=== PATIENT | female | born 1965 | race Caucasian/White ===

== ENCOUNTER 2018-01-03 14:44 | Outpatient (CLI) | payer OTHER | END 2018-01-03 14:47 | disposition home or self-care (01) | LOC: MAMO-SONO 14:44 | DX: N93.8 Other specified abnormal uterine and vaginal bleeding (principal); R10.2 Pelvic and perineal pain; N60.11 Diffuse cystic mastopathy of right breast; N60.12 Diffuse cystic mastopathy of left breast ==

== ENCOUNTER 2018-01-22 13:48 | Outpatient (CLI) | payer OTHER | END 2018-01-22 13:59 | disposition home or self-care (01) | LOC: NUCLEAR 13:48 | DX: M81.0 Age-related osteoporosis without current pathological fracture (principal) ==

== ENCOUNTER 2021-02-28 07:45 | Inpatient (IN) | payer OTHER ==
[2021-03-23] MEDS ORDERED: IRBESARTAN75 MG PO (08:33)
[2021-03-23] MEDS ORDERED: CRESTOR5 MG PO (08:33)
== END 2021-03-31 19:49 | disposition home or self-care (01) | DRG 331 ==
LOC: SURH 03-29 08:00 → O/R 03-29 08:00 → SURH 03-29 08:15
PROVIDERS: ADMIT Colon & Rectal Surgery; ATTEND Colon & Rectal Surgery
PROC: 0DBP4ZZ Excision of Rectum, Percutaneous Endoscopic Approach (ICD-10-PCS; 2021-03-29)
PROC: 4A12X4Z Monitoring of Cardiac Electrical Activity, External Approach (ICD-10-PCS; 2021-03-29)
PROC: 0DTN4ZZ Resection of Sigmoid Colon, Percutaneous Endoscopic Approach (ICD-10-PCS; principal; 2021-03-29 11:00)
DX: K57.20 Diverticulitis of large intestine with perforation and abscess without bleeding (principal); K63.5 Polyp of colon; F17.200 Nicotine dependence, unspecified, uncomplicated; I11.9 Hypertensive heart disease without heart failure; R06.81 Apnea, not elsewhere classified; D75.1 Secondary polycythemia

== ENCOUNTER → 2024-06-18 | Emergency (ER) | payer OTHER ==
[~2024-06-18] VITALS: Ht 170.2 cm; Wt 70.3 kg
[~2024-06-18] MED LIST: CRESTOR5 MG PO; IRBESARTAN75 MG PO
[2024-06-18 02:10] VITALS: BP 122/83; O2SAT 99
== END | disposition left against medical advice (07) ==
LOC: ER 01:54
DX: Z53.21 Procedure and treatment not carried out due to patient leaving prior to being seen by health care provider (principal)

== ENCOUNTER → 2024-08-05 | Emergency (ER) | payer OTHER ==
[~2024-08-05] VITALS: Ht 170.2 cm; Wt 70.3 kg
[~2024-08-05] MED LIST changes: +0.9 % SODIUM CHLORIDE 1,000 ML IV STA; +ALPRAZOLAM0.5 MG PO; +DIPHENOXYLATE HCL/ATROPINE 1 UDTAB TABLET PO STA; +FAMOTIDINE/PF 20 MG/2 ML VIAL ONE; +FAMOtidine 10 MG/ML (4ML VIAL) IV PUSH STA; +HYOSCYAMINE SULFATE 0.125 MG TAB.SUBL ONE; +HYOSCYAMINE SULFATE 0.125 MG TAB.SUBL SL ONE; +KETOROLAC TROMETHAMINE 30 MG VIAL IV STA; +KETOROLAC TROMETHAMINE 30 MG VIAL ONE; +MIRTAZAPINE15 MG PO; +ONDANSETRON HCL 2 MG/ML VIAL IV STA; +ONDANSETRON HCL 2 MG/ML VIAL ONE; +PEPCID AC20 MG PO; +PROBIOTIC1 EAC2 PO; +PROMETHAZINE HCL 50 MG/ML AMPUL IM ONE; +PROMETHAZINE HCL 50 MG/ML AMPUL IM STA
[2024-08-05 07:21] LABS: BILIRUBIN TOTAL 0.62 mg/dL (0.3-1.2); CALCIUM 8.9 mg/dL (8.5-10.1); CREATININE SERUM 0.96 mg/dL (0.55-1.02); GFR 59.49; GLOBULINA 3.4 G/DL (2.4-3.5); POTASSIUM 4.44 mEq/L (3.5-5.1); TOTAL PROTEIN 7.4 gm/dL (6.4-8.2)
[2024-08-05 08:10] LABS: HEMATOCRIT 47.6 % (34.1-44.9); RED BLOOD COUNT 5.33 M/uL (3.93-5.22)
[2024-08-05 08:11] LABS: BASO % 0.1 % (0.1-1.2); EOS # 0.05 (0.04-0.54); EOS % 0.7 % (0.7-7.0); LYMPH # 0.46 (1.18-3.74); LYMPH % 6.6 % (19.3-53.1); MONO # 0.26 (0.24-0.82); MONO % 3.7 % (4.7-12.5); NEUT # 6.23 (1.56-6.13); NEUT % 88.8 % (34.0-71.1); PLATELET COUNT 170 K/uL (163-369); RED CELL DISTRIBUTION WIDTH 13.6 % (11.6-14.4)
== END | disposition home or self-care (01) ==
LOC: ER 05:28
DX: K52.9 Noninfective gastroenteritis and colitis, unspecified (principal); D17.71 Benign lipomatous neoplasm of kidney